=== PATIENT | female | born 1985 | race Caucasian/White ===

== ENCOUNTER 2019-12-27 17:21 | Emergency (ER) | payer BC ==
[2019-12-27 17:43] VITALS: O2SAT 100
[2019-12-27] MEDS ORDERED: Hydromorphone 1 mg/ml Ampule IV ONE (18:03)
[2019-12-27] MEDS ORDERED: PROTONIX 40 MG IV IV ONE ×2 (18:03→18:09)
[2019-12-27] MEDS ORDERED: Sodium Chloride 0.9% 1000 ML 1,000 ML IV STA (18:03)
[2019-12-27] MEDS ORDERED: Zofran 4 MG/2 ML VIAL IV ONE (18:03)
[2019-12-27] MEDS ORDERED: Zofran 4 MG/2 ML VIAL ONE (18:08)
[2019-12-27] MEDS ORDERED: Sodium Chloride 0.9% 1000 ML 1,000 ML ONE (18:09)
[2019-12-27] MEDS ORDERED: Hydromorphone 1 mg/ml Ampule ONE (18:09)
--- NOTE | 2019-12-27 18:21 | ERPHSYRPT ---
- History of Present Illness Time Seen by Provider: 12/27/19 17:40 Historian: patient Patient Subjective Stated Complaint: Abdominal pain Triage Nursing Assessment: Patient ambulated back to ED and transferred self to bed. Patient A+O X 3. Patient's skin pink, warm and dry. Patient complains of RUQ pain on and off for two weeks. Patient states her pain has been pretty co nstant, sharp pain 7/10 today. Patient reports pain worse after eating. Patient states she has vomitted also today. Patient's abdomen soft and round with Bs X 4. Physician History: Loco is a 34-year-old white female who is been having episodes of right upper quadrant abdominal pain which radiates to the back on and off for 2 years and has had several episodes in the past 2 weeks. She is never had a work-up she has nausea and vomiting associated but no fever chills or sweats she is on no medications or allergies she her only previous surgery was a hysterectomy and he r only hospitalizations wERE for childbirth x2 Timing/Duration: today Quality: stabbing Abdominal Pain Onset Location: RUQ Pain Radiation: back Severity of Pain-Max: moderate Severity of Pain-Current: moderate Modifying Factors: Improves With: vomiting Associated Symptoms: nausea, vomiting Previous symptoms: same symptoms as today Allergies/Adverse Reactions: No Known Drug Allergies Allergy (Verified 12/27/19 17:33) Hx Tetanus, Diphtheria Vaccination/Date Given: Yes (up to date) Hx Influenza Vaccination/Date Given: No Hx Pneumococcal Vaccination/Date Given: No Immunizations Up to Date: Yes Travel Risk - International Travel Have you traveled outside of the country in past 3 weeks: No - Coronavirus Screening Are you exhibiting any of the following symptoms?: No Close contact with a COVID-19 positive Pt in past 14-21 Days: No - Review of Systems Constitutional: No Fever, No Chills Eyes: No Symptoms Ears, Nose, & Throat: No Symptoms Respiratory: No Cough, No Dyspnea Cardiac: No Chest Pain, No Edema, No Syncope Abdominal/Gastrointestinal: Abdominal Pain, Nausea, Vomiting, No Diarrhea Genitourinary Symptoms: No Dysuria Musculoskeletal: No Back Pain, No Neck Pain Skin: No Rash Neurological: No Dizziness, No Focal Weakness, No Sensory Changes Psychological: No Symptoms Endocrine: No Symptoms All Other Systems: Reviewed and Negative - Past Medical History Pertinent Past Medical History: No Neurological History: No Pertinent History ENT History: No Pertinent History Cardiac History: No Pertinent History Respiratory History: No Pertinent History Endocrine Medical History: No Pertinent History Musculoskeletal History: No Pertinent History GI Medical History: Other History: No Pertinent History Psycho-Social History: No Pertinent History Female Reproductive Disorders: Endometriosis - Past Surgical History Past Surgical History: Yes Neuro Surgical History: No Pertinent History Cardiac: No Pertinent History Respiratory: No Pertinent History Gastrointestinal: No Pertinent History Genitourinary: No Pertinent History Musculoskeletal: No Pertinent History Female Surgical History: Hysterectomy, Other Other Surgical History: hysterectomy in june for endometriosis vag del x 2 - Social History Smoking Status: Never smoker Exposure to second hand smoke: No Drug Use: none Patient Lives Alone: No - Female History Hx Last Menstrual Period: hysterectomy Hx Now: No - Nursing Vital Signs Nursing Vital Signs: Initial Vital Signs Temperature 98.0 F 12/27/19 17:38 Pulse Rate 86 12/27/19 17:38 Respiratory Rate 18 12/27/19 17:38 Blood Pressure 128/90 12/27/19 17:38 O2 Sat by Pulse Oximetry 100 12/27/19 17:38 Pain Scale Pain Intensity 7 - Physical Exam General Appearance: moderate distress, alert Eye Exam: PERRL/EOMI, eyes nml inspection Ears, Nose, Throat Exam: normal ENT inspection, pharynx normal, moist mucous membranes Neck Exam: normal inspection, non-tender, supple, full range of motion Respiratory Exam: normal breath sounds, lungs clear, No respiratory distress Cardiovascular Exam: regular rate/rhythm, normal heart sounds Gastrointestinal/Abdomen Exam: tenderness (In the right upper quadrant with a positive Hastings sign), guarding, No mass, No rebound Back Exam: normal inspection, normal range of motion, No CVA tenderness, No vertebral tenderness Extremity Exam: normal inspection, normal range of motion, pelvis stable Neurologic Exam: alert, oriented x 3, cooperative, normal mood/affect, nml cerebellar function, sensation nml, No motor deficits Skin Exam: normal color, warm, dry SpO2: 100 - Course Nursing assessment & vital signs reviewed: Yes EKG Interpreted by Me: RATE (68), Sinus Rhythm, NORMAL AXIS, NORMAL INTERVALS, NORMAL QRS, NORMAL ST-T - Radiology Exams Chest X-ray Interpretation: Reviewed by me, Negative - CT Exams Abdomen/Pelvis CT Interpretation: Other (Showed mild diffuse fecal stasis without obstruction a 4.6 pelvic cyst smaller than on previous study remaining CT abdomen pelvis with contrast negative0.) - Radiology Ultrasound Exam Gallbladder Ultrasound: negative Ordered Tests: Active Orders 24 hr Category Date Time Status EKG-ER Only STAT Care 12/27/19 18:03 Active ABDOMEN AND PELVIS W CONTRAST [CT] Stat Exams 12/27/19 18:33 Completed CHEST 1 VIEW (PORTABLE) Stat Exams 12/27/19 18:52 Completed GALLBLADDER [US] Stat Exams 12/27/19 19:55 Ordered AMYLASE Stat Lab 12/27/19 18:03 Completed CBC W DIFF Stat Lab 12/27/19 18:03 Completed CMP Stat Lab 12/27/19 18:03 Completed LIPASE Stat Lab 12/27/19 18:03 Completed Lactic Acid Stat Lab 12/27/19 18:03 Completed TROPONIN Q3H Lab 12/27/19 18:00 Completed TROPONIN Q3H Lab 12/27/19 21:15 Ordered TROPONIN Q3H Lab 12/28/19 00:15 Ordered TROPONIN Q3H Lab 12/28/19 03:15 Ordered TROPONIN Q3H Lab 12/28/19 06:15 Ordered UA W/RFX UR CULTURE Stat Lab 12/27/19 18:07 Completed Medication Summary Discontinued Medications Generic Name Dose Route Start Last Admin Trade Name Freq PRN Reason Stop Dose Admin Hydromorphone HCl 1 mg 12/27/19 18:03 12/27/19 18:15 Hydromorphone 1 Mg/Ml Ampule IV 12/27/19 18:04 1 mg STAT ONE Administration Hydromorphone HCl Confirm 12/27/19 18:09 Hydromorphone 1 Mg/Ml Ampule Administered 12/27/19 18:10 Dose 1 mg .ROUTE .STK-MED ONE Sodium Chloride 1,000 mls @ 999 mls/hr 12/27/19 18:03 12/27/19 18:20 Sodium Chloride 0.9% 1000 Ml IV 12/27/19 19:03 999 mls/hr .Q1H1M STA Administration Sodium Chloride Confirm 12/27/19 18:09 Sodium Chloride 0.9% 1000 Ml Administered 12/27/19 18:10 Dose 1,000 mls @ ud .ROUTE .STK-MED ONE Ondansetron HCl 4 mg 12/27/19 18:03 12/27/19 18:14 Zofran 4 Mg/2 Ml Vial IV 12/27/19 18:04 4 mg STAT ONE Administration Ondansetron HCl Confirm 12/27/19 18:08 Zofran 4 Mg/2 Ml Vial Administered 12/27/19 18:09 Dose 4 mg .ROUTE .STK-MED ONE Pantoprazole Sodium 40 mg 12/27/19 18:03 12/27/19 18:14 Protonix 40 Mg Iv IV 12/27/19 18:04 40 mg STAT ONE Administration Pantoprazole Sodium Confirm 12/27/19 18:09 Protonix 40 Mg Iv Administered 12/27/19 18:10 Dose 40 mg IV .STK-MED ONE Lab/Rad Data: Laboratory Result Diagrams 12/27/19 18:03 12/27/19 18:03 Laboratory Results 12/27/19 12/27/19 12/27/19 Range/Units 18:07 18:03 18:03 WBC (4.0-10.5) K/mm3 RBC (4.1-5.4) M/mm3 Hgb (12.0-16.0) gm/dl Hct (35-47) % MCV (78-100) fl MCH (26-32) pg MCHC (32-36) g/dl RDW (11.5-14.0) % Plt Count (150-450) K/mm3 MPV (7.5-11.0) fl Gran % (36.0-66.0) % Eos # (Auto) (0-0.5) Absolute Lymphs (auto) (1.0-4.6) Absolute Monos (auto) (0.0-1.3) Lymphocytes % (24.0-44.0) % Monocytes % (0.0-12.0) % Eosinophils % (0.00-5.0) % Basophils % (0.0-0.4) % Absolute Granulocytes (1.4-6.9) Basophils # (0-0.4) Sodium 141 (137-145) mmol/L Potassium 3.2 L (3.5-5.1) mmol/L Chloride 104 (98-107) mmol/L Carbon Dioxide 27 (22-30) mmol/L Anion Gap 12.8 (5-15) MEQ/L BUN 11 (7-17) mg/dL Creatinine 0.76 (0.52-1.04) mg/dL Estimated GFR > 60.0 ML/MIN Glucose 110 H (74-106) mg/dL Lactic Acid 1.4 (0.4-2.0) Calcium 9.8 (8.4-10.2) mg/dL Total Bilirubin 0.70 (0.2-1.3) mg/dL AST 34 (14-36) U/L ALT 13 (0-35) U/L Alkaline Phosphatase 57 (38-126) U/L Troponin I (0.000-0.034) ng/mL Serum Total Protein 9.0 H (6.3-8.2) g/dL Albumin 5.2 H (3.5-5.0) g/dL Amylase 99 (30-110) U/L Lipase 153 (23-300) U/L Urine Color STRAW (YELLOW) Urine Appearance CLEAR (CLEAR) Urine pH 6.0 (5-6) Ur Specific [place] 1.004 (1.005-1.025) Urine Protein NEGATIVE (Negative) Urine Ketones NEGATIVE (NEGATIVE) Urine Blood SMALL (0-5) [place]/ul Urine Nitrite NEGATIVE (NEGATIVE) Urine Bilirubin NEGATIVE (NEGATIVE) Urine Urobilinogen NEGATIVE (0-1) mg/dL Ur Leukocyte Esterase NEGATIVE (NEGATIVE) Urine WBC (Auto) NONE (0-5) /HPF Urine RBC (Auto) NONE (0-2) /HPF U Epithel Cells (Auto) NONE (FEW) /HPF Urine Bacteria (Auto) NONE (NEGATIVE) /HPF Urine Mucus (Auto) SLIGHT (NEGATIVE) /HPF Urine Culture Reflexed NO (NO) Urine Glucose NEGATIVE (NEGATIVE) mg/dL 12/27/19 12/27/19 Range/Units 18:03 18:00 WBC 10.1 (4.0-10.5) K/mm3 RBC 4.98 (4.1-5.4) M/mm3 Hgb 14.6 (12.0-16.0) gm/dl Hct 44.1 (35-47) % MCV 88.6 (78-100) fl MCH 29.3 (26-32) pg MCHC 33.1 (32-36) g/dl RDW 12.8 (11.5-14.0) % Plt Count 340 (150-450) K/mm3 MPV 9.7 (7.5-11.0) fl Gran % 53.7 (36.0-66.0) % Eos # (Auto) 0.05 (0-0.5) Absolute Lymphs (auto) 3.61 (1.0-4.6) Absolute Monos (auto) 0.97 (0.0-1.3) Lymphocytes % 35.9 (24.0-44.0) % Monocytes % 9.6 (0.0-12.0) % Eosinophils % 0.5 (0.00-5.0) % Basophils % 0.3 (0.0-0.4) % Absolute Granulocytes 5.40 (1.4-6.9) Basophils # 0.03 (0-0.4) Sodium (137-145) mmol/L Potassium (3.5-5.1) mmol/L Chloride (98-107) mmol/L Carbon Dioxide (22-30) mmol/L Anion Gap (5-15) MEQ/L BUN (7-17) mg/dL Creatinine (0.52-1.04) mg/dL Estimated GFR ML/MIN Glucose (74-106) mg/dL Lactic Acid (0.4-2.0) Calcium (8.4-10.2) mg/dL Total Bilirubin (0.2-1.3) mg/dL AST (14-36) U/L ALT (0-35) U/L Alkaline Phosphatase (38-126) U/L Troponin I < 0.012 (0.000-0.034) ng/mL Serum Total Protein (6.3-8.2) g/dL Albumin (3.5-5.0) g/dL Amylase (30-110) U/L Lipase (23-300) U/L Urine Color (YELLOW) Urine Appearance (CLEAR) Urine pH (5-6) Ur Specific [place] (1.005-1.025) Urine Protein (Negative) Urine Ketones (NEGATIVE) Urine Blood (0-5) [place]/ul Urine Nitrite (NEGATIVE) Urine Bilirubin (NEGATIVE) Urine Urobilinogen (0-1) mg/dL Ur Leukocyte Esterase (NEGATIVE) Urine WBC (Auto) (0-5) /HPF Urine RBC (Auto) (0-2) /HPF U Epithel Cells (Auto) (FEW) /HPF Urine Bacteria (Auto) (NEGATIVE) /HPF Urine Mucus (Auto) (NEGATIVE) /HPF Urine Culture Reflexed (NO) Urine Glucose (NEGATIVE) mg/dL - Progress Progress: improved - Departure Departure Disposition: Home Clinical Impression: Gastritis Condition: Stable Critical Care Time: No Referrals: MAMADOU MOREJON MD [Primary Care Provider] - Instructions: Acute Abdomen (Belly Pain), Adult (DC) Prescriptions: Hydrocodone/APAP 5-325 Tab^^^ [Miracle 5-325 Tablet^^^] 1 tab PO Q6HPRN PRN #10 tablet MDD 6 PRN Reason: Pain PANTOPRAZOLE 40 mg Tablet [Protonix 40MG Tablet] 40 mg PO QPM 30 Days #30 tab Ondansetron HCl [Zofran] 4 mg PO TID PRN #10 tablet PRN Reason: Nausea/Vomiting
[2019-12-27 18:26] LABS: BASOPHIL % 0.3 % (0.0-0.4); Basophil (Absolute #) 0.03 (0-0.4); Eosinophil % 0.5 % (0.00-5.0); Eosinophil (Absolute #) 0.05 (0-0.5); Hematocrit 44.1 % (35-47); Hemoglobin 14.6 gm/dl (12.0-16.0); Lymphocyte (Absolute #) 3.61 (1.0-4.6); Lymphocytes % 35.9 % (24.0-44.0); Mean Cell Volume 88.6 fl (78-100); Mean Corpuscular Hemoglobin 29.3 pg (26-32); Mean Corpuscular Hgb Concent. 33.1 g/dl (32-36); Mean Platelet Volume 9.7 fl (7.5-11.0); Monocyte (Absolute #) 0.97 (0.0-1.3); Monocytes % 9.6 % (0.0-12.0); Neutrophil % 53.7 % (36.0-66.0); Platelet Count 340 K/mm3 (150-450); Red Blood Count 4.98 M/mm3 (4.1-5.4); Red Cell Distribution Width 12.8 % (11.5-14.0); White Blood Count 10.1 K/mm3 (4.0-10.5)
[2019-12-27 18:29] LABS: ALBUMIN 5.2 g/dL (3.5-5.0); ALKALINE PHOSPHATASE 57 U/L (38-126); AMYLASE 99 U/L (30-110); ANION GAP 12.8 MEQ/L (5-15); BLOOD UREA NITROGEN 11 mg/dL (7-17); CHLORIDE 104 mmol/L (98-107); Calcium 9.8 mg/dL (8.4-10.2); Carbon Dioxide 27 mmol/L (22-30); Creatinine 1 0.76 mg/dL (0.52-1.04); EST GLOMERULAR FILTRATION RATE > 60.0 ML/MIN; Glucose 110 mg/dL (74-106); LIPASE 153 U/L (23-300); Potassium 3.2 mmol/L (3.5-5.1); SGOT/AST 34 U/L (14-36); SGPT/ALT 13 U/L (0-35); SODIUM 141 mmol/L (137-145)
[2019-12-27 18:44] LABS: Appearance CLEAR (CLEAR); Bilirubin NEGATIVE (NEGATIVE); Blood SMALL Ery/ul (0-5); Glucose NEGATIVE (NEGATIVE); Ketones NEGATIVE (NEGATIVE); Leukocyte Esterase NEGATIVE (NEGATIVE); Mucus SLIGHT /HPF (NEGATIVE); Nitrite NEGATIVE (NEGATIVE); Protein,Urine Dip NEGATIVE (Negative); Specific Gravity 1.004 (1.005-1.025); Urobilinogen NEGATIVE mg/dL (0-1)
--- NOTE | 2019-12-27 19:13 | XRAY ---
Indication: Right upper quadrant pain. Comparison: None Portable chest demonstrate normal heart and lungs. Bony thorax intact with minimal scoliosis.
--- NOTE | 2019-12-27 19:18 | XRAY ---
Indication: Right upper quadrant pain. Nausea and vomiting. Multiple contiguous axial images obtained through the abdomen and pelvis using 80 cc SUV 370 contrast. Comparison: March 04, 2016. Lung bases are clear. Heart is not enlarged. Noncontrasted stomach and bowel loops appear nonobstructed. Normal appendix. There is now mild diffuse colonic fecal debris throughout. Again reported hysterectomy. Floor the pelvis again demonstrates a 4.6 cm cyst, previously 7 cm. No free fluid/air. Remaining liver, gallbladder, pancreas, spleen, adrenal glands, kidneys, ureters, bladder, and aorta appear normal in CT appearance and attenuation. No pathologic retroperitoneal lymphadenopathy. Osseous structures intact. Impression: 1. New mild diffuse fecal stasis without obstruction. 2. Again 4.6 cm pelvic cyst presumed ovary in etiology. 3. Remaining CT abdomen/pelvis with contrast exam is negative.
[2019-12-27 20:17] VITALS: BP 107/65; PULSE 88
--- NOTE | 2019-12-27 22:13 | XRAY ---
Indication: Right upper quadrant pain 2 weeks. Two-dimensional gallbladder sonogram performed. Comparison: February 24, 2017. Visualized gallbladder normally distended without gallstones, wall thickening, or pericholecystic fluid. Common bile duct measures 2.1 mm. No intrahepatic biliary distention. Remaining visualized portions of the liver, pancreas, and right kidney appear sonographically normal. Right kidney measures 9.1 cm in length. Impression: Continued negative gallbladder sonogram.
== END 2019-12-27 20:30 | disposition home or self-care (01) ==
LOC: ED 17:21
DX: K29.70 Gastritis, unspecified, without bleeding (principal)
CPT/HCPCS: 36415; 71045; 74177; 76705; 80053; 81001; 82150; 83605; 83690; 84484; 85025; 93005; 96374; 96375; 99284; J1170; J2405